=== PATIENT | female | born 1935 | race Caucasian/White ===

== ENCOUNTER 2017-10-30 06:44 | Emergency (ER) | payer MEDICARE ==
[~2017-10-30] VITALS: Ht 157.5 cm; Wt 81.8 kg
[~2017-10-30 06:44] MED LIST: ASPIRIN EC81 MG PO; AUGMENTIN875TAB PO; BENADRYL 25MG C25 MG PO; CBD OIL SL; CLA1000 MG PO; CO Q 10100 MG PO; CO Q-10200 M1 PO; DITROPAN XL5 MG PO; EQ ASPIRIN LOW81 MG PO; FUROSEMIDE20 MG PO; Hemp Oil PO; ISOSORB MONO30 MG PO; LASIX 20 MG TAB20 MG PO; LEVOTHYROXIN75 MC1 PO; LIPITOR80 M1 PO; LISINOPRIL10 MG PO; LOVASTATIN20 MG PO; MELOXICAM15 MG PO; METOPROL TAR25 MG PO; METOPROLOL SUCC25 MG PO; MULTI 50+ PO; NITROGLYCER0.4 MG SL; OMEGA-3 KRILL500 MG PO; PLAVIX75 MG PO; PROTONIX40 MG PO; SLO-NIACIN500 MG PO; STATINS; SUPER B COM2 PO; TOPROL XL50 MG PO; VITAMIN D35000 UNIT PO; ZESTRIL5 M1 PO
[2017-10-30 07:43] LABS: HEMATOCRIT 41.8 % (37.0-47.0); HEMOGLOBIN 13.8 g/dl (12.0-16.0); IMMATURE GRANULOCYTES 0.3 % (0.0-5.0); MEAN CELL VOLUME 95.7 fL CALC (80.0-100.0); MEAN CORPUSCULAR HGB 31.6 pG CALC (26.0-32.0); NEUT# 6.92 thou/uL (2.00-7.15); RED BLOOD COUNT 4.37 mill/uL (4.20-5.60); RED CELL DISTRI WIDTH 14.3 % (11.5-15.5)
[2017-10-30 07:55] LABS: ALBUMIN 3.8 g/dL (3.2-5.0); ALKALINE PHOSPHATASE 85 u/l (38-126); ANION GAP 13 (6-22 (CALC)); BILIRUBIN, TOTAL 0.6 mg/dL (0.0-1.4); BUN 21 mg/dL (8-23); BUN/CREATININE RATIO 34 (12-20 (CALC)); CARBON DIOXIDE 24 mmol/l (22-30); CHLORIDE 107 mmol/l (95-108); CREATININE 0.6 mg/dL (0.5-1.0); GFR > 60 ML/MIN (>=60 (CALC)); GFR FOR AFR.AMER. > 60 ML/MIN (>=60 (CALC)); SGOT/AST 44 u/l (9-36); SGPT/ALT 54 u/l (11-66); SODIUM 141 mmol/l (137-146); TOTAL PROTEIN 6.8 g/dL (6.3-8.2)
[2017-10-30] MEDS ORDERED: CBD OIL (08:01)
[2017-10-30 08:04] LABS: MYOGLOBIN 26 ng/mL (0 - 62)
[2017-10-30 09:59] LABS: URINE BILIRUBIN - DIPSTICK NEGATIVE (NEGATIVE); URINE BLOOD DIPSTICK NEGATIVE (NEGATIVE); URINE COLOR YELLOW; URINE GLUCOSE - DIPSTICK NEGATIVE (NEGATIVE); URINE KETONE NEGATIVE (NEGATIVE); URINE NITRITE - DIPSTICK NEGATIVE (Negative); URINE PH 5.5 (4.5-8.0); URINE PROTEIN - DIPSTICK NEGATIVE (NEG-TRACE); URINE SPECIFIC GRAVITY 1.025; URINE UROBILINOGEN - DIPSTICK 0.2 E.U./dL (0.2)
[2017-10-30 10:05] LABS: URINE CLARITY SL CLOUDY; URINE LEUK ESTERASE SMALL (NEGATIVE)
[2017-10-30 10:08] LABS: URINE BACTERIA FEW hpf
[2017-10-30] MEDS ORDERED: BACTRIM DS1 TAB PO (10:11)
[2017-10-30 10:20] VITALS: BP 140/70
== END 2017-10-30 10:32 | disposition home or self-care (01) ==
LOC: ED 06:44
PROVIDERS: Emergency Medicine
DX: R42 Dizziness and giddiness (principal); N39.0 Urinary tract infection, site not specified; I10 Essential (primary) hypertension; E03.9 Hypothyroidism, unspecified; R00.1 Bradycardia, unspecified

== ENCOUNTER → 2017-11-10 | Outpatient (REF) | payer MEDICARE ==
[~2017-11-10] MED LIST changes: +BACTRIM DS1 TAB PO; +CBD OIL
== END | disposition home or self-care (01) ==
LOC: DI 09:27
PROVIDERS: ATTEND Nurse Practitioner
DX: R13.10 Dysphagia, unspecified (principal); K22.5 Diverticulum of esophagus, acquired

== ENCOUNTER 2017-12-13 13:58 | Emergency (ER) | payer MEDICARE ==
[~2017-12-13] VITALS: Ht 157.5 cm; Wt 84.9 kg
[~2017-12-13 13:58] MED LIST changes: +HYZAAR1 TA1 PO
[2017-12-13 15:40] VITALS: BP 161/67
== END 2017-12-13 15:47 | disposition home or self-care (01) ==
LOC: ED 13:58
DX: S05.11XA Contusion of eyeball and orbital tissues, right eye, initial encounter (principal); W01.0XXA Fall on same level from slipping, tripping and stumbling without subsequent striking against object, initial encounter; Y93.89 Activity, other specified; Y92.007 Garden or yard of unspecified non-institutional (private) residence as the place of occurrence of the external cause

== ENCOUNTER 2017-12-18 05:44 | Day surgery (SDC) | payer MEDICARE ==
[~2017-12-18] VITALS: Ht 157.5 cm; Wt 81.6 kg
[2017-12-18] MEDS ORDERED: HYZAAR1 TA1 PO (06:57)
[2017-12-18] MEDS ORDERED: PLAVIX75 MG PO (06:57)
[2017-12-18 08:59] VITALS: BP 109/58
== END 2017-12-18 09:20 | disposition home or self-care (01) ==
LOC: ENDO 05:44
PROVIDERS: ATTEND Surgery
PROC: 0DJ08ZZ Inspection of Upper Intestinal Tract, Via Natural or Artificial Opening Endoscopic (ICD-10-PCS; principal; 2017-12-18)
DX: K22.5 Diverticulum of esophagus, acquired (principal)

== ENCOUNTER → 2018-04-10 | Outpatient (REF) | payer MEDICARE ==
[2018-04-10 09:23] LABS: HEMATOCRIT 41.7 % (37.0-47.0); HEMOGLOBIN 13.9 g/dl (12.0-16.0); MEAN CELL VOLUME 97.2 fL CALC (80.0-100.0); MEAN CORPUSCULAR HGB 32.4 pG CALC (26.0-32.0); MEAN CORPUSCULAR HGB CONC 33.3 g/L CALC (32.0-36.0); RED BLOOD COUNT 4.29 mill/uL (4.20-5.60); RED CELL DISTRI WIDTH 14.6 % (11.5-15.5)
[2018-04-10 09:43] LABS: ANION GAP 15 (6-22 (CALC)); BUN 13 mg/dL (8-23); BUN/CREATININE RATIO 18 (12-20 (CALC)); CALCULATED LDLCHOLESTEROL 44 mg/dL (62-129 (CALC)); CARBON DIOXIDE 29 mmol/l (22-30); CHLORIDE 99 mmol/l (95-108); CHOLESTEROL HDL RATIO 2.5 (<4.4 (CALC)); CREATININE 0.7 mg/dL (0.5-1.0); GFR > 60 ML/MIN (>=60 (CALC)); GFR FOR AFR.AMER. > 60 ML/MIN (>=60 (CALC)); HDL CHOLESTEROL 42 mg/dL (>=40); POTASSIUM 3.8 mmol/l (3.5-5.1); SODIUM 140 mmol/l (137-146); TOTAL CHOLESTEROL 107 mg/dl (0-199); TOTAL TRIGLYCERIDES 104 mg/dl (30-149); VLDL CHOLESTROL 21 mg/dl (0-48 (CALC))
[2018-04-10 10:17] LABS: TSH, 3RD GENERATION 2.05 uIU/mL (0.47 - 4.68)
== END | disposition home or self-care (01) ==
LOC: LAB 08:22
PROVIDERS: ATTEND Nurse Practitioner Family
DX: E03.9 Hypothyroidism, unspecified (principal); I10 Essential (primary) hypertension; E78.49 Other hyperlipidemia; R79.9 Abnormal finding of blood chemistry, unspecified

== ENCOUNTER 2018-10-30 12:47 | Emergency (ER) | payer MEDICARE ==
[~2018-10-30] VITALS: Ht 157.5 cm; Wt 81.8 kg
[2018-10-30 14:06] VITALS: BP 133/65
== END 2018-10-30 14:10 | disposition home or self-care (01) ==
LOC: ED 12:47
DX: M25.562 Pain in left knee (principal)

== ENCOUNTER 2018-11-18 04:11 | Emergency (ER) | payer MEDICARE ==
[~2018-11-18] VITALS: Ht 157.5 cm; Wt 81.8 kg
[2018-11-18 04:39] LABS: HEMATOCRIT 40.8 % (37.0-47.0); HEMOGLOBIN 13.6 g/dl (12.0-16.0); IMMATURE GRANULOCYTES 0.3 % (0.0-5.0); MEAN CELL VOLUME 97.1 fL CALC (80.0-100.0); MEAN CORPUSCULAR HGB 32.4 pG CALC (26.0-32.0); MEAN CORPUSCULAR HGB CONC 33.3 g/L CALC (32.0-36.0); NEUT# 4.52 thou/uL (2.00-7.15); RED BLOOD COUNT 4.2 mill/uL (4.20-5.60)
[2018-11-18 04:46] LABS: ACT PARTIAL THROMBO TIME 23.5 SECONDS (20.0-32.5); PROTHROMBIN TIME 10.2 SECONDS (9.0-12.5)
[2018-11-18 04:58] LABS: ALBUMIN 4.2 g/dL (3.2-5.0); ALKALINE PHOSPHATASE 92 u/l (38-126); AMYLASE 72 u/l (30-110); ANION GAP 12 (6-22 (CALC)); BILIRUBIN, TOTAL 0.7 mg/dL (0.0-1.4); BUN 15 mg/dL (8-23); BUN/CREATININE RATIO 22 (12-20 (CALC)); CARBON DIOXIDE 29 mmol/l (22-30); CHLORIDE 101 mmol/l (95-108); CREATININE 0.7 mg/dL (0.5-1.0); GFR > 60 ML/MIN (>=60 (CALC)); GFR FOR AFR.AMER. > 60 ML/MIN (>=60 (CALC)); LIPASE 82 u/l (23-300); POTASSIUM 3.7 mmol/l (3.5-5.1); SGOT/AST 47 u/l (9-36); SODIUM 138 mmol/l (137-146); TOTAL PROTEIN 7.8 g/dL (6.3-8.2)
[2018-11-18 05:10] LABS: MYOGLOBIN 41 ng/mL (0 - 62)
[2018-11-18] MEDS ORDERED: AMLODIPINE BESYL5 MG PO (05:36)
[2018-11-18 06:20] VITALS: BP 136/60
== END 2018-11-18 06:15 | disposition home or self-care (01) ==
LOC: ED 04:11
PROVIDERS: Family Medicine
DX: I10 Essential (primary) hypertension (principal); E03.9 Hypothyroidism, unspecified; R07.9 Chest pain, unspecified

== ENCOUNTER 2020-09-18 11:22 | Emergency (ER) | payer MEDICARE ==
[~2020-09-18 11:22] MED LIST changes: +AMLODIPINE BESYL5 MG PO
[2020-09-18 11:58] LABS: HEMATOCRIT 41.4 % (37.0-47.0); HEMOGLOBIN 13.3 g/dl (12.0-16.0); IMMATURE GRANULOCYTES 0.3 % (0.0-5.0); MEAN CORPUSCULAR HGB 31.8 pG CALC (26.0-32.0); MEAN CORPUSCULAR HGB CONC 32.1 g/dL CAL (32.0-36.0); NEUT# 5.85 thou/uL (2.00-7.15); RED BLOOD COUNT 4.18 mill/uL (4.20-5.60); RED CELL DISTRI WIDTH 14.6 % (11.5-15.5)
[2020-09-18 12:17] LABS: ALBUMIN 4.2 g/dL (3.2-5.0); ALKALINE PHOSPHATASE 57 u/l (38-126); ANION GAP 13 (6-22 (CALC)); BILIRUBIN, TOTAL 0.7 mg/dL (0.0-1.4); BUN 19 mg/dL (8-23); BUN/CREATININE RATIO 28 (12-20 (CALC)); CARBON DIOXIDE 26 mmol/l (22-30); CHLORIDE 102 mmol/l (95-108); CREATININE 0.7 mg/dL (0.5-1.0); GFR > 60 ML/MIN (>=60 (CALC)); GFR FOR AFR.AMER. > 60 ML/MIN (>=60 (CALC)); POTASSIUM 3.9 mmol/l (3.5-5.1); SGOT/AST 37 u/l (9-36); SODIUM 137 mmol/l (137-146)
[2020-09-18 12:28] LABS: MYOGLOBIN 31 ng/mL (0 - 62)
[2020-09-18] MEDS ORDERED: ONDANSETRON4 MG PO (13:09)
[2020-09-18] MEDS ORDERED: MECLIZINE25 MG PO (13:09)
[2020-09-18 13:13] VITALS: BP 138/63
== END 2020-09-18 14:00 | disposition home or self-care (01) ==
LOC: ED 11:22
PROVIDERS: Emergency Medicine
DX: R42 Dizziness and giddiness (principal); I10 Essential (primary) hypertension; E03.9 Hypothyroidism, unspecified; Z20.822 Contact with and (suspected) exposure to COVID-19

== ENCOUNTER 2021-02-09 03:20 | Emergency (ER) | payer MEDICARE ==
[~2021-02-09] VITALS: Ht 157.5 cm; Wt 82.0 kg
[~2021-02-09 03:20] MED LIST changes: +MECLIZINE25 MG PO; +ONDANSETRON4 MG PO
[2021-02-09] MEDS ORDERED: DIOVAN HCT PO (05:34)
[2021-02-09] MEDS ORDERED: NORVASC2.5 M1 PO (05:35)
[2021-02-09 05:47] LABS: IMMATURE GRANULOCYTES 0.4 % (0.0-5.0); MEAN CORPUSCULAR HGB 31.9 pG CALC (26.0-32.0); MEAN CORPUSCULAR HGB CONC 32.4 g/dL CAL (32.0-36.0); NEUT# 4.68 thou/uL (2.00-7.15); RED BLOOD COUNT 4.27 mill/uL (4.20-5.60); RED CELL DISTRI WIDTH 14.5 % (11.5-15.5)
[2021-02-09 05:56] LABS: HEMOGLOBIN 13.6 g/dl (12.0-16.0); MEAN CELL VOLUME 98.4 fL CALC (80.0-100.0)
[2021-02-09 05:58] LABS: ALBUMIN 3.9 g/dL (3.2-5.0); ALKALINE PHOSPHATASE 61 u/l (38-126); ANION GAP 10 (6-22 (CALC)); BILIRUBIN, TOTAL 0.6 mg/dL (0.0-1.4); BUN 19 mg/dL (8-23); BUN/CREATININE RATIO 22 (12-20 (CALC)); CARBON DIOXIDE 28 mmol/l (22-30); CHLORIDE 104 mmol/l (95-108); CREATININE 0.9 mg/dL (0.5-1.0); GFR 60 ML/MIN (>=60 (CALC)); GFR FOR AFR.AMER. > 60 ML/MIN (>=60 (CALC)); SGOT/AST 26 u/l (9-36); SODIUM 138 mmol/l (137-146); TOTAL PROTEIN 7.4 g/dL (6.3-8.2)
[2021-02-09 06:04] LABS: MYOGLOBIN 36 ng/mL (0 - 62)
[2021-02-09 06:55] VITALS: BP 111/55
== END 2021-02-09 06:55 | disposition home or self-care (01) ==
LOC: ED 04:27
PROVIDERS: Family Medicine
DX: I10 Essential (primary) hypertension (principal); E03.9 Hypothyroidism, unspecified